=== PATIENT | female | born 1970 | race Caucasian/White ===

== ENCOUNTER → 2017-09-09 | Outpatient (CLI) | payer OTHER ==
[~2017-09-09] MED LIST: BACDS PO; BUPR300T55 PO; CELE-1 PO; CEP500 PO; IBUP-56 PO; MELA10CA PO; MON10 PO; NO ROUTINE MEDS; PER PO; ZOLP-350 PO
== END ==
LOC: LAB 13:58
DX: Z52.4 Kidney donor (principal)
CPT/HCPCS: 36415

== ENCOUNTER → 2017-10-26 | Outpatient (CLI) | payer OTHER | LOC: LAB 16:57 | PROVIDERS: ATTEND Internal Medicine Nephrology | DX: Z52.4 Kidney donor (principal) | CPT/HCPCS: 36415; 81001; 82040; 82043; 82247; 82310; 82374; 82435; 82565; 82570; 82947; 83036; 84075; 84132; 84155; 84156; 84295; 84450; 84460; 84520; 85027 ==

== ENCOUNTER → 2017-11-24 | Outpatient (CLI) | payer OTHER | LOC: LAB 15:33 | PROVIDERS: ATTEND Internal Medicine Nephrology | DX: Z52.4 Kidney donor (principal) ==

== ENCOUNTER → 2017-11-26 | Outpatient (CLI) | payer OTHER | LOC: LAB 11:55 | PROVIDERS: ATTEND Internal Medicine Nephrology | DX: Z52.4 Kidney donor (principal) ==

== ENCOUNTER → 2018-02-03 | Outpatient (CLI) | payer OTHER ==
--- NOTE | 2018-02-03 12:09 | RADIOLOGY IMAGING REPORT ---
FACILITY: [facility] PATIENT NAME: Taylor Metcalf : 1970 MR: [id number] V: [id number] EXAM DATE: ORDERING PHYSICIAN: JAILENE STUBBS TECHNOLOGIST: Location: [facility] Patient: Taylor Metcalf : 1970 Visit/Account:[id number] Date of Sevice: 02/03/2018 KIDNEYS EXAMINATION: Renal ultrasound. History: Proteinuria, family history of renal problems COMPARISON STUDIES: FINDINGS: Kidneys: Right kidney- 9.6 x 4.4 x 5.3 cm Left kidney- 10.8 x 5.9 x 5.5 cm Uniform and symmetric blood flow in each kidney by Doppler ultrasound. Hydronephrosis: none Resistive index on the right 0.63 and on the left 0.67 Bladder: Prevoid volume 463 mL. Post void residual 9.5 mL. Bilateral ureteral jets are present. Abdominal aorta and IVC: Aorta and IVC are patent by Doppler ultrasound. IMPRESSION: Unremarkable renal ultrasound Report Dictated By: Leeanne Diaz MD at 02/03/2018 12:01 PM Report E-Signed By: Leeanne Diaz MD at 02/03/2018 12:02 PM WSN:[email or web address]
== END ==
LOC: US 00:48
PROVIDERS: ATTEND Internal Medicine Nephrology
DX: R80.9 Proteinuria, unspecified (principal)
CPT/HCPCS: 36415; 76705; 81001; 82043; 82310; 82374; 82435; 82565; 82947; 83883; 84132; 84156; 84165; 84295; 84520; 86038; 86160; 86334